=== PATIENT | female | born 1985 | race Caucasian/White ===

== ENCOUNTER → 2025-08-14 08:51 | Outpatient (REF) | payer BC, SELFPAY | LOC: WDC 08:51 | PROVIDERS: ATTENDING PHYSICIAN Obstetrics & Gynecology; FAMILY PHYSICIAN Nurse Practitioner Adult Health | DX: R92.8 Other abnormal and inconclusive findings on diagnostic imaging of breast (principal) | CPT/HCPCS: 76642 ==